=== PATIENT | male | born 1975 | race Caucasian/White ===

== ENCOUNTER 2024-01-31 08:38 | Day surgery (SDC) | payer BC ==
[2024-01-31] MEDS: Lactated Ringers 1,000 ML IV SCH (08:52)
[2024-01-31] MEDS ORDERED: Propofol 200 MG/20 ML SDV ONE (10:01)
[2024-01-31] MEDS ORDERED: Midazolam 1 MG/ML 2 ML SDV ONE (10:01)
[2024-01-31] MEDS ORDERED: fentaNYL 100 MCG/2 ML SDV ONE (10:02)
== END 2024-01-31 11:20 | disposition home or self-care (01) ==
LOC: VM.SDS 08:38
PROVIDERS: ATTEND Family Medicine
DX: Z12.11 Encounter for screening for malignant neoplasm of colon (principal); D12.5 Benign neoplasm of sigmoid colon; E78.00 Pure hypercholesterolemia, unspecified; F17.210 Nicotine dependence, cigarettes, uncomplicated; Z80.0 Family history of malignant neoplasm of digestive organs
CPT/HCPCS: 00811; J2250; J2704; J3010; J7120